=== PATIENT | male | born 1945 | race Caucasian/White ===

== ENCOUNTER 2020-10-26 14:04 | Inpatient (IN) | payer MEDICARE ==
[2020-10-26] MEDS ORDERED: SODIUM CHLORIDE 0.9% 1,000 ML IV ONE ×2 (14:28→18:53)
[2020-10-26] MEDS ORDERED: SODIUM CHLORIDE 0.9% 500 ML 500 ML IV ONE (14:28)
--- NOTE | 2020-10-26 14:33 | ED ---
General Adult HPI - General Chief complaint: Dizziness Stated complaint: A fib Time Seen by Provider: 10/26/20 14:10 Source: patient, EMS, RN notes reviewed, old records reviewed Mode of arrival: EMS Limitations: altered mental status - History of Present Illness Initial comments: This is a 74-year-old male who has a past medical history of atrial fibrillation and high blood pressure. Patient is very poor historian secondary to his current condition. Patient is brought in by EMS because of his altered mental status. A neighbor found him yesterday and the neighbor thought the patient was confused and the patient continued to be confused so EMS was called and they brought the patient to the emergency department. Patient denies any symptoms. Patient states he does understand that he was here because he is somewhat forgetful. Patient denies headache patient denies numbness weakness. Patient denies chest pain difficult breathing shortness of breath. Patient denies any recent fever chills or cough per patient denies abdominal pain patient denies nausea vomiting diarrhea. Patient denies any dysuria hematuria urinary frequency. Patient denies any recent fall or trauma. - Related Data Home Medications Medication Instructions Recorded Confirmed Diclofenac Sodium Gel [Voltaren 2 gm TOPICAL QID PRN 10/26/20 10/26/20 Gel] Furosemide [Lasix] 20 mg PO DAILY 10/26/20 10/26/20 Metoprolol Tartrate [Lopressor] 50 mg PO BID 10/26/20 10/26/20 Omeprazole 20 mg PO DAILY 10/26/20 10/26/20 Sildenafil Citrate 100 mg PO DAILY PRN 10/26/20 10/26/20 Simvastatin 80 mg PO HS 10/26/20 10/26/20 Warfarin Sodium 2 mg PO TUSA 10/26/20 10/26/20 Warfarin Sodium 4 mg PO SUMOWETHFR 10/26/20 10/26/20 lisinopriL [Zestril] 5 mg PO DAILY 10/26/20 10/26/20 Allergies Allergy/AdvReac Type Severity Reaction Status Date / Time No Known Allergies Allergy Verified 10/26/20 17:52 Review of Systems ROS Statement: Those systems with pertinent positive or pertinent negative responses have been documented in the HPI. ROS Other: All systems not noted in ROS Statement are negative. Past Medical History Past Medical History: Atrial Fibrillation, Hypertension History of Any Multi-Drug Resistant Organisms: None Reported Past Surgical History: No Surgical Hx Reported Past Psychological History: No Psychological Hx Reported Smoking Status: Never smoker Past Alcohol Use History: None Reported Past Drug Use History: None Reported General Exam - General Exam Comments Initial Comments: GENERAL: Patient is well-developed and well-nourished. Patient is nontoxic and well- hydrated and is in mild distress. ENT: Neck is soft and supple. No significant lymphadenopathy is noted. Oropharynx is clear. Moist mucous membranes. Neck has full range of motion without eliciting any pain. EYES: The sclera were anicteric and conjunctiva were pink and moist. Extraocular movements were intact and pupils were equal round and reactive to light. Eyeli ds were unremarkable. PULMONARY: Unlabored respirations. Good breath sounds bilaterally. No audible rales rhonchi or wheezing was noted. CARDIOVASCULAR: There is a regular rate and rhythm without any murmurs gallops or rubs. ABDOMEN: Soft and nontender with normal bowel sounds. No palpable organomegaly was noted. There is no palpable pulsatile mass. SKIN: Skin is clear with no lesions or rashes and otherwise unremarkable. NEUROLOGIC: Patient is alert and oriented 2. Cranial nerves II through XII are grossly intact. Motor and sensory are also intact. Normal speech, volume and content. Symmetrical smile. MUSCULOSKELETAL: Normal extremities with adequate strength and full range of motion. LYMPHATICS: No significant lymphadenopathy is noted PSYCHIATRIC: Normal psychiatric evaluation. Limitations: no limitations Course Vital Signs 10/26/20 10/26/20 14:07 15:53 Temperature 98.7 F 99.1 F Pulse Rate 99 80 Respiratory 18 18 Rate Blood Pressure 101/73 101/61 O2 Sat by Pulse 94 L 95 Oximetry Medical Decision Making - Medical Decision Making EKG shows atrial fibrillation with occasional PVC at 91 bpm QRS is 114 QT interval 380 QTC is 467. Patient's EKG shows no ST segment elevation or depression. Patient was COVID positive. Patient's chest x-ray shows pneumonia consistent with COVID pneumonia. I spoke with some physicians agreed to admit the patient and the patient wrote admitting orders. - Lab Data Result diagrams: 10/26/20 14:45 10/26/20 14:45 Lab Results 10/26/20 10/26/20 10/26/20 Range/Units 14:45 14:45 14:45 WBC 4.6 (3.8-10.6) k/uL RBC 4.76 (4.30-5.90) m/uL Hgb 15.4 (13.0-17.5) gm/dL Hct 44.1 (39.0-53.0) % MCV 92.7 (80.0-100.0) fL MCH 32.3 (25.0-35.0) pg MCHC 34.8 (31.0-37.0) g/dL RDW 12.9 (11.5-15.5) % Plt Count 385 (150-450) k/uL MPV 6.9 Neutrophils % 69 % Lymphocytes % 20 % Monocytes % 5 % Eosinophils % 2 % Basophils % 1 % Neutrophils # 3.2 (1.3-7.7) k/uL Lymphocytes # 0.9 L (1.0-4.8) k/uL Monocytes # 0.3 (0-1.0) k/uL Eosinophils # 0.1 (0-0.7) k/uL Basophils # 0.1 (0-0.2) k/uL PT >130.0 H (9.0-12.0) sec INR >10.0 H* (<1.2) APTT 46.2 H (22.0-30.0) sec Sodium 135 L (137-145) mmol/L Potassium 3.6 (3.5-5.1) mmol/L Chloride 96 L (98-107) mmol/L Carbon Dioxide 27 (22-30) mmol/L Anion Gap 12 mmol/L BUN 25 H (9-20) mg/dL Creatinine 1.03 (0.66-1.25) mg/dL Est GFR (CKD-EPI)AfAm 82 (>60 ml/min/1.73 sqM) Est GFR (CKD-EPI)NonAf 71 (>60 ml/min/1.73 sqM) Glucose 115 H (74-99) mg/dL Calcium 8.3 L (8.4-10.2) mg/dL Total Bilirubin 1.0 (0.2-1.3) mg/dL AST 68 H (17-59) U/L ALT 48 (4-49) U/L Alkaline Phosphatase 48 (38-126) U/L Troponin I (0.000-0.034) ng/mL Total Protein 6.5 (6.3-8.2) g/dL Albumin 3.2 L (3.5-5.0) g/dL Urine Color Urine Appearance (Clear) Urine pH (5.0-8.0) Ur Specific Loving (1.001-1.035) Urine Protein (Negative) Urine Glucose (UA) (Negative) Urine Ketones (Negative) Urine Blood (Negative) Urine Nitrite (Negative) Urine Bilirubin (Negative) Urine Urobilinogen (<2.0) mg/dL Ur Leukocyte Esterase (Negative) Urine Opiates Screen (NotDetected) Ur Oxycodone Screen (NotDetected) Urine Methadone Screen (NotDetected) Ur Propoxyphene Screen (NotDetected) Ur Barbiturates Screen (NotDetected) U Tricyclic Antidepress (NotDetected) Ur Phencyclidine Scrn (NotDetected) Ur Amphetamines Screen (NotDetected) U Methamphetamines Scrn (NotDetected) U Benzodiazepines Scrn (NotDetected) Urine Cocaine Screen (NotDetected) U Marijuana (THC) Screen (NotDetected) Serum Alcohol <10 mg/dL Coronavirus (PCR) (Not Detectd) 10/26/20 10/26/20 10/26/20 Range/Units 14:45 16:00 18:18 WBC (3.8-10.6) k/uL RBC (4.30-5.90) m/uL Hgb (13.0-17.5) gm/dL Hct (39.0-53.0) % MCV (80.0-100.0) fL MCH (25.0-35.0) pg MCHC (31.0-37.0) g/dL RDW (11.5-15.5) % Plt Count (150-450) k/uL MPV Neutrophils % % Lymphocytes % % Monocytes % % Eosinophils % % Basophils % % Neutrophils # (1.3-7.7) k/uL Lymphocytes # (1.0-4.8) k/uL Monocytes # (0-1.0) k/uL Eosinophils # (0-0.7) k/uL Basophils # (0-0.2) k/uL PT (9.0-12.0) sec INR (<1.2) APTT (22.0-30.0) sec Sodium (137-145) mmol/L Potassium (3.5-5.1) mmol/L Chloride (98-107) mmol/L Carbon Dioxide (22-30) mmol/L Anion Gap mmol/L BUN (9-20) mg/dL Creatinine (0.66-1.25) mg/dL Est GFR (CKD-EPI)AfAm (>60 ml/min/1.73 sqM) Est GFR (CKD-EPI)NonAf (>60 ml/min/1.73 sqM) Glucose (74-99) mg/dL Calcium (8.4-10.2) mg/dL Total Bilirubin (0.2-1.3) mg/dL AST (17-59) U/L ALT (4-49) U/L Alkaline Phosphatase (38-126) U/L Troponin I 0.014 (0.000-0.034) ng/mL Total Protein (6.3-8.2) g/dL Albumin (3.5-5.0) g/dL Urine Color Yellow Urine Appearance Clear (Clear) Urine pH 5.0 (5.0-8.0) Ur Specific Loving 1.019 (1.001-1.035) Urine Protein Trace H (Negative) Urine Glucose (UA) Negative (Negative) Urine Ketones Trace H (Negative) Urine Blood Negative (Negative) Urine Nitrite Negative (Negative) Urine Bilirubin Negative (Negative) Urine Urobilinogen <2.0 (<2.0) mg/dL Ur Leukocyte Esterase Negative (Negative) Urine Opiates Screen Not Detected (NotDetected) Ur Oxycodone Screen Not Detected (NotDetected) Urine Methadone Screen Not Detected (NotDetected) Ur Propoxyphene Screen Not Detected (NotDetected) Ur Barbiturates Screen Not Detected (NotDetected) U Tricyclic Antidepress Not Detected (NotDetected) Ur Phencyclidine Scrn Not Detected (NotDetected) Ur Amphetamines Screen Not Detected (NotDetected) U Methamphetamines Scrn Not Detected (NotDetected) U Benzodiazepines Scrn Not Detected (NotDetected) Urine Cocaine Screen Not Detected (NotDetected) U Marijuana (THC) Screen Not Detected (NotDetected) Serum Alcohol mg/dL Coronavirus (PCR) Detected A (Not Detectd) Disposition Clinical Impression: Coagulopathy, Altered mental status, Pneumonia due to COVID-19 virus Disposition: ADMITTED IP TO THIS HOSP Referrals: Nonstaff,Physician [Primary Care Provider] - 1-2 days Time of Disposition: 18:53
[2020-10-26 15:05] LABS: Basophils # (A) 0.1 k/uL (0-0.2); Basophils % (A) 1 %; Eosinophils # (A) 0.1 k/uL (0-0.7); Eosinophils % (A) 2 %; HCT 44.1 % (39.0-53.0); HGB 15.4 gm/dL (13.0-17.5); Lymphocytes # (A) 0.9 k/uL (1.0-4.8); Lymphocytes % (A) 20 %; MCH 32.3 pg (25.0-35.0); MCHC 34.8 g/dL (31.0-37.0); MCV 92.7 fL (80.0-100.0); Mean Platelet Volume 6.9; Monocytes # (A) 0.3 k/uL (0-1.0); Monocytes % (A) 5 %; Neutrophils # (A) 3.2 k/uL (1.3-7.7); Neutrophils % (A) 69 %; Platelet Count 385 k/uL (150-450); RBC 4.76 m/uL (4.30-5.90); RDW 12.9 % (11.5-15.5); WBC 4.6 k/uL (3.8-10.6)
[2020-10-26 15:19] LABS: Partial Thromboplastin Time 46.2 sec (22.0-30.0)
[2020-10-26 15:21] LABS: ALT 48 U/L (4-49); AST 68 U/L (17-59); African American GFR (CKD) 82 (>60 ml/min/1.73 sqM); Albumin 3.2 g/dL (3.5-5.0); Alcohol <10 mg/dL; Alkaline Phosphatase 48 U/L (38-126); Anion Gap 12 mmol/L; Blood Urea Nitrogen 25 mg/dL (9-20); Calcium 8.3 mg/dL (8.4-10.2); Carbon Dioxide 27 mmol/L (22-30); Chloride 96 mmol/L (98-107); Glucose 115 mg/dL (74-99); Non-African American GFR(CKD) 71 (>60 ml/min/1.73 sqM); Potassium 3.6 mmol/L (3.5-5.1); Sodium 135 mmol/L (137-145); Total Protein 6.5 g/dL (6.3-8.2)
--- NOTE | 2020-10-26 15:21 | XR ---
EXAMINATION TYPE: XR chest 2V DATE OF EXAM: 10/26/2020 COMPARISON: NONE HISTORY: Shortness of breath TECHNIQUE: Frontal and lateral views of the chest are obtained. FINDINGS: Scattered senescent parenchymal changes noted. Hyperinflation compatible with COPD. Scattered areas of patchy infiltrate are seen bilaterally. Correlate for Covid 19 pneumonia. Heart size is stable. Mediastinal structures are stable and grossly unremarkable. No evidence for hilar prominence. Degenerative changes dorsal spine. IMPRESSION: 1. Scattered areas of patchy infiltrate are seen bilaterally. Correlate for Covid 19 pneumonia.
[2020-10-26 15:44] LABS: Prothrombin Time >130.0 sec (9.0-12.0)
[2020-10-26 15:45] LABS: INR >10.0 (<1.2)
[2020-10-26 16:39] LABS: Appearance,Urine Clear (Clear); Bilirubin,Urine Negative (Negative); Blood,Urine Negative (Negative); Color,Urine Yellow; Glucose,Urine (UA) Negative (Negative); Ketones,Urine Trace (Negative); Leukocyte Esterase,Urine Negative (Negative); Nitrite,Urine Negative (Negative); Protein,Urine Trace (Negative); Specific Gravity,Urine 1.019 (1.001-1.035); Urobilinogen,Urine <2.0 mg/dL (<2.0)
--- NOTE | 2020-10-26 16:40 | CT ---
EXAM: CT brain wo con CLINICAL HISTORY: Pain. COMPARISON: None TECHNIQUE: Contiguous axial noncontrast images of the brain were obtained. Coronal and sagittal refor mats were generated and reviewed. Automated dose reduction technique was used for the study. DLP: 109 8.4 mGy.cm FINDINGS: There is no evidence for intracranial hemorrhage, mass effect, midline shift or acute large vessel te rritory infarct. There is moderate parenchymal volume loss. Otherwise white matter is grossly preserv ed. Ventricular size and configuration is within normal limits for degree of parenchymal volume. The paranasal sinuses demonstrate moderate disease. The mastoid air cells are clear. No evidence for calvarial fracture. IMPRESSION: No acute intracranial abnormality.
[2020-10-26 16:49] LABS: Amphetamine Screen,Urine Not Detected (NotDetected); Barbiturate Screen,Urine Not Detected (NotDetected); Benzodiazepines Screen,Urine Not Detected (NotDetected); Cocaine Screen,Urine Not Detected (NotDetected); Methadone Screen, Urine Not Detected (NotDetected); Opiate Screen,Urine Not Detected (NotDetected); Oxycodone Screen, Urine Not Detected (NotDetected); Phencyclidine Screen,Urine Not Detected (NotDetected); Tricyclic Antidepressant,Urine Not Detected (NotDetected); Urn Cannabinoid Scrn Not Detected (NotDetected)
[2020-10-26] MEDS ORDERED: dexAMETHasone 2 MG TAB PO STA (18:56)
[2020-10-26] MEDS ORDERED: PHYTONADIONE ORAL 5 MG/5 ML ORAL.SYRG PO STA (20:05)
[2020-10-26] MEDS: METOPROLOL TARTRATE 50 MG TAB PO SCH (21:51)
--- NOTE | 2020-10-26 23:49 | P.HPIM ---
History of Present Illness H&P Date: 10/26/20 The patient is a 74-year-old male with a PMH of A. fib on Coumadin, and hypertension who was brought into the emergency room by EMS due to altered mental status. The patient was a very poor historian and could not provide meaningful history. The patient was reportedly found confused in his house by the neighbor who subsequently contacted EMS. In noted that he does not know why he's here. Reported a chronic nonproductive cough for the past several months but denied any additional complaints. Denied chest discomfort, shortness of breath, fever, chills, nausea, vomiting, abdominal pain. Could not recall the events over the past few days. The patient lives by himself and notes that his son visits him and checks on him often. The patient could not recall his son's contact information and his number is not the chart. He underwent an extensive evaluation in the emergency room which was all reviewed with coronavirus PCR positive, chest x-ray consistent with COVID-[address] was unremarkable with EKG showing A. fib at 91 bpm. Laboratory evaluation also revealed an INR greater than 10, sodium 135, chloride 96, BUN 25, creatinine 1.03, glucose 115, calcium 8.3, AST 68, with unremarkable UA and urine toxicology. Review of Systems Pertinent positives and negatives as discussed in HPI, a complete review of systems was performed and all other systems are negative. Past Medical History Past Medical History: Atrial Fibrillation, Hypertension History of Any Multi-Drug Resistant Organisms: None Reported Past Surgical History: No Surgical Hx Reported Past Anesthesia/Blood Transfusion Reactions: Unable to Obtain Past Psychological History: No Psychological Hx Reported Smoking Status: Never smoker Past Alcohol Use History: None Reported Past Drug Use History: None Reported Medications and Allergies Home Medications Medication Instructions Recorded Confirmed Type Diclofenac Sodium Gel [Voltaren 2 gm TOPICAL QID PRN 10/26/20 10/26/20 History Gel] Furosemide [Lasix] 20 mg PO DAILY 10/26/20 10/26/20 History Metoprolol Tartrate [Lopressor] 50 mg PO BID 10/26/20 10/26/20 History Omeprazole 20 mg PO DAILY 10/26/20 10/26/20 History Sildenafil Citrate 100 mg PO DAILY PRN 10/26/20 10/26/20 History Simvastatin 80 mg PO HS 10/26/20 10/26/20 History Warfarin Sodium 2 mg PO TUSA 10/26/20 10/26/20 History Warfarin Sodium 4 mg PO SUMOWETHFR 10/26/20 10/26/20 History lisinopriL [Zestril] 5 mg PO DAILY 10/26/20 10/26/20 History Allergies Allergy/AdvReac Type Severity Reaction Status Date / Time No Known Allergies Allergy Verified 10/26/20 17:52 Physical Exam Vitals: Vital Signs Temp Pulse Pulse Resp BP BP Pulse Ox 10/26/20 23:30 86 18 121/77 91 L 10/26/20 21:10 99.1 F 89 18 114/66 92 L 10/26/20 21:06 18 10/26/20 20:55 98.8 F 101 H 18 115/69 95 10/26/20 15:53 99.1 F 80 18 101/61 95 10/26/20 14:07 98.7 F 99 18 101/73 94 L Intake and Output 10/26/20 10/26/20 10/27/20 14:59 22:59 06:59 Other: Weight 81.647 kg 81.647 kg General: non toxic, no distress, appears at stated age Derm: no unusual rashes/lesions no unusual ecchymoses, warm, dry Head: atraumatic, normocephalic, symmetric Eyes: EOMI, no lid lag, anicteric sclera, pupils equal round reactive to light ENT: Nose and ears atraumatic, no thrush, no pharyngeal erythema Neck: No thyromegaly, no cervical lymphadenopathy, trachea midline, supple Mouth: no lip lesion, mucus membranes moist Cardiovascular: S1S2 reg, no murmur, positive posterior tibial pulse bilateral, no edema, capillary refill less than 2 seconds Lungs: CTA bilateral, no rhonchi, no rales , no accessory muscle use Abdominal: soft, nontender to palpation, no guarding, no appreciable organomegaly, normal bowel sounds Ext: no gross muscle atrophy, muscle strength 5 out of 5 in all 4 extremities grossly, no contractures, Neuro: CN II-XI grossly intact, light touch intact all 4 extremities, finger to nose within normal limits, Psych: Awake, alert, oriented to person, believes he is in a medical clinic, oriented to year but not to month Results CBC & Chem 7: 10/26/20 14:45 10/26/20 14:45 Labs: Abnormal Lab Results - Last 24 Hours (Table) 10/26/20 10/26/20 10/26/20 Range/Units 14:45 14:45 14:45 Lymphocytes # 0.9 L (1.0-4.8) k/uL PT >130.0 H (9.0-12.0) sec INR >10.0 H* (<1.2) APTT 46.2 H (22.0-30.0) sec Sodium 135 L (137-145) mmol/L Chloride 96 L (98-107) mmol/L BUN 25 H (9-20) mg/dL Glucose 115 H (74-99) mg/dL Calcium 8.3 L (8.4-10.2) mg/dL AST 68 H (17-59) U/L Albumin 3.2 L (3.5-5.0) g/dL Urine Protein (Negative) Urine Ketones (Negative) Coronavirus (PCR) (Not Detectd) 10/26/20 10/26/20 Range/Units 16:00 18:18 Lymphocytes # (1.0-4.8) k/uL PT (9.0-12.0) sec INR (<1.2) APTT (22.0-30.0) sec Sodium (137-145) mmol/L Chloride (98-107) mmol/L BUN (9-20) mg/dL Glucose (74-99) mg/dL Calcium (8.4-10.2) mg/dL AST (17-59) U/L Albumin (3.5-5.0) g/dL Urine Protein Trace H (Negative) Urine Ketones Trace H (Negative) Coronavirus (PCR) Detected A (Not Detectd) Thrombosis Risk Factor Assmnt - Choose All That Apply Any of the Below Risk Factors Present?: No Other Risk Factors: Yes Each Risk Factor Represents 3 Points: Age 75 years or older Thrombosis Risk Factor Assessment Total Risk Factor Score: 3 Thrombosis Risk Factor Assessment Level: Moderate Risk Assessment and Plan Plan: COVID-19 Pneumonia -Supplemental oxygen -Dexamethasone -Monitor inflammatory markers -Pulmonary consult Altered mental status, likely acute toxic metabolic encephalopathy secondary to ongoing pneumonia -Continue with above management -CT head unremarkable -Treat underlying dehydration due to likely poor oral intake Supratherapeutic INR on Coumadin -2.5 mg of oral vitamin K ordered -Monitor INR daily -Hold Coumadin for now -Monitor for bleeding Prerenal azotemia, likely secondary to poor oral intake -Continue with IV fluids Hypertension -Hold off on antihypertensives in setting of borderline BP with active infection DVT prophylaxis -Coumadin The patient is admitted with an anticipated greater than 2 midnight stay for evaluation of COVID-19 pneumonia CODE STATUS: Full Code Discussed with: Patient Anticipated discharge date: 3-[address]: Home A total of 35 minutes was spent on the care of this complex patient more than 50% of the time was spent in counseling and care coordination.
[2020-10-27 07:29] LABS: HCT 46.3 % (39.0-53.0); HGB 15.5 gm/dL (13.0-17.5); MCH 31.9 pg (25.0-35.0); MCHC 33.5 g/dL (31.0-37.0); MCV 95.1 fL (80.0-100.0); Mean Platelet Volume 6.9; Platelet Count 357 k/uL (150-450); RBC 4.87 m/uL (4.30-5.90); WBC 4.2 k/uL (3.8-10.6)
[2020-10-27 07:32] LABS: ALT 44 U/L (4-49); AST 63 U/L (17-59); African American GFR (CKD) >90 (>60 ml/min/1.73 sqM); Alkaline Phosphatase 46 U/L (38-126); Anion Gap 8 mmol/L; Blood Urea Nitrogen 18 mg/dL (9-20); C Reactive Protein 55.1 mg/L (<10.0); Calcium 8.1 mg/dL (8.4-10.2); Carbon Dioxide 24 mmol/L (22-30); Chloride 100 mmol/L (98-107); Glucose 218 mg/dL (74-99); LDH 962 U/L (313-618); Non-African American GFR(CKD) >90 (>60 ml/min/1.73 sqM); Potassium 4.1 mmol/L (3.5-5.1); Sodium 132 mmol/L (137-145); Total Protein 6.1 g/dL (6.3-8.2)
[2020-10-27 07:44] LABS: INR 4.2 (<1.2); Prothrombin Time 40.6 sec (9.0-12.0)
[2020-10-27] MEDS ORDERED: lisinopriL 5 MG TAB PO SCH (09:00)
[2020-10-27] MEDS: FUROSEMIDE 20 MG TAB PO SCH (09:33)
[2020-10-27] MEDS: PANTOPRAZOLE 40 MG TABLET PO SCH (09:34)
[2020-10-27] MEDS: METOPROLOL TARTRATE 50 MG TAB PO SCH ×2 (09:34→19:49)
[2020-10-27] MEDS: dexAMETHasone 2 MG TAB PO SCH (09:34)
[2020-10-27 11:07] LABS: Erythrocyte Sedimentation Rate 55 mm/hr (0-15)
--- NOTE | 2020-10-27 12:29 | P.PN ---
Subjective Progress Note Date: 10/27/20 Principal diagnosis: COVID-19 Patient is doing well today. He denies any shortness of breath. He was on room air when I saw him and O2 sats was 92%. No acute events overnight reported by nursing staff. Objective - Vital Signs Vital signs: Vital Signs Temp 97.4 F L 10/27/20 08:00 Pulse 96 10/27/20 08:00 Resp 20 10/27/20 08:00 BP 108/69 10/27/20 08:00 Pulse Ox 93 L 10/27/20 08:21 Intake & Output 10/26/20 10/27/20 10/27/20 18:59 06:59 18:59 Intake Total 450 480 Output Total 300 Balance 150 480 Weight 81.647 kg 80 kg Intake: Intake, IV Titration 450 Amount Sodium Chloride 0.9% 1, 450 000 ml @ 75 mls/hr IV . [id number] Rx#:[id number] Oral 480 Output: Urine 300 Other: # Voids 1 - Exam General: The patient is awake and alert, in no distress Eye: there is normal conjunctiva bilaterally. Neck: The neck is supple, there is no JVD. Cardiovascular: Normal S1-S2, no S3-S4, no murmurs. Respiratory: Lungs clear to auscultation bilaterally Gastrointestinal: Abdomen is soft, nontender Musculoskeletal: There is no pedal edema. Neurological:. Speech is normal. Skin: Skin is warm and dry - Labs CBC & Chem 7: 10/27/20 06:41 10/27/20 06:41 Labs: Abnormal Lab Results - Last 24 Hours (Table) 10/26/20 10/26/20 10/26/20 Range/Units 14:45 14:45 14:45 Lymphocytes # 0.9 L (1.0-4.8) k/uL ESR (0-15) mm/hr PT >130.0 H (9.0-12.0) sec INR >10.0 H* (<1.2) APTT 46.2 H (22.0-30.0) sec Sodium 135 L (137-145) mmol/L Chloride 96 L (98-107) mmol/L BUN 25 H (9-20) mg/dL Glucose 115 H (74-99) mg/dL Calcium 8.3 L (8.4-10.2) mg/dL AST 68 H (17-59) U/L Lactate Dehydrogenase (313-618) U/L C-Reactive Protein (<10.0) mg/L Total Protein (6.3-8.2) g/dL Albumin 3.2 L (3.5-5.0) g/dL Urine Protein (Negative) Urine Ketones (Negative) Coronavirus (PCR) (Not Detectd) 10/26/20 10/26/20 10/27/20 Range/Units 16:00 18:18 06:41 Lymphocytes # (1.0-4.8) k/uL ESR (0-15) mm/hr PT 40.6 H (9.0-12.0) sec INR 4.2 H (<1.2) APTT (22.0-30.0) sec Sodium (137-145) mmol/L Chloride (98-107) mmol/L BUN (9-20) mg/dL Glucose (74-99) mg/dL Calcium (8.4-10.2) mg/dL AST (17-59) U/L Lactate Dehydrogenase (313-618) U/L C-Reactive Protein (<10.0) mg/L Total Protein (6.3-8.2) g/dL Albumin (3.5-5.0) g/dL Urine Protein Trace H (Negative) Urine Ketones Trace H (Negative) Coronavirus (PCR) Detected A (Not Detectd) 10/27/20 10/27/20 Range/Units 06:41 06:41 Lymphocytes # (1.0-4.8) k/uL ESR 55 H (0-15) mm/hr PT (9.0-12.0) sec INR (<1.2) APTT (22.0-30.0) sec Sodium 132 L (137-145) mmol/L Chloride (98-107) mmol/L BUN (9-20) mg/dL Glucose 218 H (74-99) mg/dL Calcium 8.1 L (8.4-10.2) mg/dL AST 63 H (17-59) U/L Lactate Dehydrogenase 962 H (313-618) U/L C-Reactive Protein 55.1 H (<10.0) mg/L Total Protein 6.1 L (6.3-8.2) g/dL Albumin 3.0 L (3.5-5.0) g/dL Urine Protein (Negative) Urine Ketones (Negative) Coronavirus (PCR) (Not Detectd) Assessment and Plan Assessment: This is a 74-year-old male with past medical history noted below who presented to the emergency room with altered mental status. Patient was evaluated in the ER and admitted to the hospital for further management of his medical problems noted below. 1. COVID-19 pneumonia, we will continue supportive care. Started on vitamin C, vitamin D, and melatonin. Pulmonology consulted for further evaluation 2. Acute toxo metabolic encephalopathy, may be attributed to underlying infec tion. Baseline cognitive function is not known to me. Computed tomography scan of the brain in the ER with no acute findings. We will continue orientation and to contact family to clarify baseline mental status. Urinalysis was clear. 3. Acute hypoxic respiratory failure on presentation, now resolved. Patient is on room air. He was started on dexamethasone 6 mg daily currently day #2 4. Coagulopathy, with INR greater than 10 on presentation. Patient was given vitamin K in the ER. We'll continue to monitor INR daily. Continue to hold Coumadin for now. 5. Chronic medical problems: Essential hypertension, paroxysmal atrial fibrillation
--- NOTE | 2020-10-27 14:08 | P.CNPUL ---
History of Present Illness Consult date: 10/27/20 Requesting physician: Elaina Maza Reason for consult: abnormal CXR/CT, other Chief complaint: Confusion, mental status changes. History of present illness: 74-year-old male, with a history of atrial fibrillation and hypertension. The patient apparently was a very poor historian in the emergency department, and still is. He was brought in by EMS, because of mental status changes. He melissa arently was found by a neighbor or a friend, and the patient was confused, so EMS was called and they brought him into the emergency department. He wasn't sure why he was here. He denies all pulmonary complaints including shortness of breath, cough, wheezing, chest tightness, phlegm production. He also denies chest pain or chest discomfort. He also denies any fever or chills. They did test him for coronavirus in the emergency room, and he did test positive. They did also notice that he had a Coumadin induced coagulopathy, which is much improved today. He denied any nausea, vomiting, diarrhea, or abdominal pain. He also denies any leg swelling, and all genitourinary complaints. He also any trauma. Currently, the patient's on room air. He is resting comfortably. He states he is not short of breath. His chest x-ray, did show some diffuse bilateral infiltrates, consistent with COVID 19. Review of Systems REVIEW OF SYSTEMS: CONSTITUTIONAL: Confusion NEUROLOGIC: Memory loss HEENT: [ Negative.] CARDIAC: [Negative.] PULMONARY: [Negative.] GI: [Negative.] : [Negative.] RHEUMATOLOGIC: [ Negative.] IMMUNOLOGIC: [ Negative.] ENDOCRINE: [Negative. ] DERMATOLOGIC: [Negative.] Past Medical History Past Medical History: Atrial Fibrillation, Hypertension History of Any Multi-Drug Resistant Organisms: None Reported Past Surgical History: No Surgical Hx Reported Past Anesthesia/Blood Transfusion Reactions: Unable to Obtain Past Psychological History: No Psychological Hx Reported Smoking Status: Never smoker Past Alcohol Use History: None Reported Past Drug Use History: None Reported Medications and Allergies Home Medications Medication Instructions Recorded Confirmed Type Diclofenac Sodium Gel [Voltaren 2 gm TOPICAL QID PRN 10/26/20 10/26/20 History Gel] Furosemide [Lasix] 20 mg PO DAILY 10/26/20 10/26/20 History Metoprolol Tartrate [Lopressor] 50 mg PO BID 10/26/20 10/26/20 History Omeprazole 20 mg PO DAILY 10/26/20 10/26/20 History Sildenafil Citrate 100 mg PO DAILY PRN 10/26/20 10/26/20 History Simvastatin 80 mg PO HS 10/26/20 10/26/20 History Warfarin Sodium 2 mg PO TUSA 10/26/20 10/26/20 History Warfarin Sodium 4 mg PO SUMOWETHFR 10/26/20 10/26/20 History lisinopriL [Zestril] 5 mg PO DAILY 10/26/20 10/26/20 History Allergies Allergy/AdvReac Type Severity Reaction Status Date / Time No Known Allergies Allergy Verified 10/26/20 17:52 Physical Exam Osteopathic Statement: *. No significant issues noted on an osteopathic structural exam other than those noted in the History and Physical/Consult. Vitals: Vital Signs Temp Pulse Pulse Resp BP BP Pulse Ox 10/27/20 08:21 93 L 10/27/20 08:00 97.4 F L 96 20 108/69 95 10/27/20 04:00 97.7 F 94 18 136/82 93 L 10/27/20 02:00 86 18 10/26/20 23:30 86 18 121/77 91 L 10/26/20 21:10 99.1 F 89 18 114/66 92 L 10/26/20 21:06 18 10/26/20 20:55 98.8 F 101 H 18 115/69 95 10/26/20 15:53 99.1 F 80 18 101/61 95 10/26/20 14:07 98.7 F 99 18 101/73 94 L Intake and Output 10/26/20 10/27/20 10/27/20 22:59 06:59 14:59 Intake Total 450 600 Output Total 300 600 Balance 150 0 Intake: Intake, IV Titration 450 Amount Sodium Chloride 0.9% 1, 450 000 ml @ 75 mls/hr IV . [id number] ONE Rx#:[id number] Oral 600 Output: Urine 300 600 Other: # Voids 1 Weight 81.647 kg 80 kg No acute distress, oriented 3. No respiratory distress, audible wheezing, or use of accessory muscles. HEENT examination is grossly unremarkable. Mucous membranes are moist. No oral lesions. Neck supple. Full range of motion. No adenopathy thyromegaly or neck vein distention. Cardiovascular examination reveals regular rhythm rate. S1-S2 normal. No S3 or S4. No discernible murmur noted. Heart rate is 96 bpm. Lungs reveal clear breath sounds. Her sounds are equal bilaterally. No adventitious lung sounds including wheezes rhonchi or crackles. Room air saturation is 95%. Abdomen soft bowel sounds are heard. No masses or tenderness. Extremities are intact. No cyanosis clubbing or edema. Skin is without rash or lesion. Neurologic examination reveals a gentleman who moves all 4 extremities, but is confused as to why he is here in the hospital. Results - Laboratory Findings CBC and BMP: 10/27/20 06:41 10/27/20 06:41 PT/INR, D-dimer PT 40.6 sec (9.0-12.0) H 10/27/20 06:41 INR 4.2 (<1.2) H 10/27/20 06:41 Abnormal lab findings: Abnormal Labs 10/26/20 10/26/20 10/26/20 14:45 14:45 14:45 Lymphocytes # 0.9 L ESR PT >130.0 H INR >10.0 H* APTT 46.2 H Sodium 135 L Chloride 96 L BUN 25 H Glucose 115 H Calcium 8.3 L AST 68 H Lactate Dehydrogenase C-Reactive Protein Total Protein Albumin 3.2 L Urine Protein Urine Ketones Coronavirus (PCR) 10/26/20 10/26/20 10/27/20 16:00 18:18 06:41 Lymphocytes # ESR PT 40.6 H INR 4.2 H APTT Sodium Chloride BUN Glucose Calcium AST Lactate Dehydrogenase C-Reactive Protein Total Protein Albumin Urine Protein Trace H Urine Ketones Trace H Coronavirus (PCR) Detected A 10/27/20 10/27/20 06:41 06:41 Lymphocytes # ESR 55 H PT INR APTT Sodium 132 L Chloride BUN Glucose 218 H Calcium 8.1 L AST 63 H Lactate Dehydrogenase 962 H C-Reactive Protein 55.1 H Total Protein 6.1 L Albumin 3.0 L Urine Protein Urine Ketones Coronavirus (PCR) - Diagnostic Findings Chest x-ray: image reviewed Assessment and Plan Assessment: Coronavirus infection, and evidence of possible mild COVID 19 pneumonia, in a pa tient without pulmonary complaints. Mental status changes, and confusion, which may be either acute or chronic. History of atrial fibrillation. History of essential hypertension. Lifelong nontobacco user. Coumadin induced coagulopathy. Hyperlipidemia. Gastroesophageal reflux disease. Plan: Plan dated 10/27/2020. The patient tested positive for coronavirus, but does not appear to have any significant pulmonary complaints. He denies any shortness breath, cough, wheezing, or phlegm production. His chest x-ray does show some minimal bilateral patchy infiltrates. The patient is a lifelong nonsmoker. He has no known history of any chronic lung disease. He does have a history of atrial fibrillation, hypertension, hyperlipidemia, and gastroesophageal reflux disease. His mental status changes, may relate to coronavirus, or underlying dementia. From the pulmonary standpoint, not much to do. I would offer the patient vitamin C, vitamin D3, and zinc. The patient in my opinion does not require Decadron. I would not recommend it. His Coumadin induced coagulopathy is much improved. We'll see the patient as needed. Should his respiratory status declined, please feel free to call us back. Time with Patient: Greater than 30
[2020-10-27 15:21] LABS: Ferritin 1277.5 ng/mL (22.0-322.0)
[2020-10-27] MEDS: ASCORBIC ACID 500 MG TAB PO SCH (16:04)
[2020-10-27] MEDS: CHOLECALCIFEROL 25 MCG (1000 IU) TABLET PO SCH (16:04)
[2020-10-27] MEDS: MELATONIN 5 MG TABLET PO SCH (19:49)
[2020-10-28 07:49] LABS: INR 2.2 (<1.2); Prothrombin Time 21.5 sec (9.0-12.0)
[2020-10-28 08:21] LABS: African American GFR (CKD) >90 (>60 ml/min/1.73 sqM); Anion Gap 6 mmol/L; Blood Urea Nitrogen 21 mg/dL (9-20); Calcium 8.2 mg/dL (8.4-10.2); Carbon Dioxide 26 mmol/L (22-30); Chloride 106 mmol/L (98-107); Glucose 115 mg/dL (74-99); Magnesium 2.1 mg/dL (1.6-2.3); Non-African American GFR(CKD) >90 (>60 ml/min/1.73 sqM); Potassium 3.9 mmol/L (3.5-5.1); Sodium 138 mmol/L (137-145)
[2020-10-28] MEDS: METOPROLOL TARTRATE 50 MG TAB PO SCH ×2 (08:54→20:29)
[2020-10-28] MEDS: dexAMETHasone 2 MG TAB PO SCH (08:54)
[2020-10-28] MEDS: ASCORBIC ACID 500 MG TAB PO SCH (08:54)
[2020-10-28] MEDS: PANTOPRAZOLE 40 MG TABLET PO SCH (08:54)
[2020-10-28] MEDS: CHOLECALCIFEROL 25 MCG (1000 IU) TABLET PO SCH (08:54)
[2020-10-28] MEDS: FUROSEMIDE 20 MG TAB PO SCH (08:54)
--- NOTE | 2020-10-28 11:16 | P.PN ---
Subjective Progress Note Date: 10/28/20 Principal diagnosis: COVID-19 Patient is doing well today. He is currently on room air. He denies any shortness of breath. No acute events overnight reported by nursing staff. Patient appears very confused. He is only oriented to himself. He has no insight of his medical problems and is not sure about how he takes his Coumadin at home. He lives alone. Objective - Vital Signs Vital signs: Vital Signs Temp 98.2 F 10/28/20 08:51 Pulse 105 H 10/28/20 08:51 Resp 18 10/28/20 08:51 BP 128/70 10/28/20 08:51 Pulse Ox 91 L 10/28/20 08:51 Intake & Output 10/27/20 10/28/20 10/28/20 18:59 06:59 18:59 Intake Total 1380 510 Output Total 600 550 Balance 780 -550 510 Weight 82 kg Intake: IV 10 Invasive Line 3 10 Intake, IV Titration 200 Amount Sodium Chloride 0.9% 1, 200 000 ml @ 75 mls/hr IV . [id number] ONE Rx#:[id number] Oral 1380 300 Output: Urine 600 550 Other: Voiding Method Urinal # Voids 1 1 - Exam General: The patient is awake and alert, in no distress Eye: there is normal conjunctiva bilaterally. Neck: The neck is supple, there is no JVD. Cardiovascular: Normal S1-S2, no S3-S4, no murmurs. Respiratory: Lungs clear to auscultation bilaterally Gastrointestinal: Abdomen is soft, nontender Musculoskeletal: There is no pedal edema. Neurological:. Speech is normal. Skin: Skin is warm and dry - Labs CBC & Chem 7: 10/27/20 06:41 10/28/20 06:42 Labs: Abnormal Lab Results - Last 24 Hours (Table) 10/27/20 10/28/20 10/28/20 Range/Units 06:41 06:42 06:42 PT 21.5 H (9.0-12.0) sec INR 2.2 H (<1.2) BUN 21 H (9-20) mg/dL Glucose 115 H (74-99) mg/dL Calcium 8.2 L (8.4-10.2) mg/dL Ferritin 1277.5 H (22.0-322.0) ng/mL Assessment and Plan Assessment: This is a 74-year-old male with past medical history noted below who presented to the emergency room with altered mental status. Patient was evaluated in the ER and admitted to the hospital for further management of his medical problems noted below. 1. COVID-19 pneumonia, we will continue supportive care. Started on vitamin C, vitamin D, and melatonin. Pulmonology consulted for further evaluation. Recommended to discontinue Decadron. No evidence of hypoxia. 2. Acute toxo metabolic encephalopathy, with suspected underlying dementia. Worsening confusion may be attributed to underlying infection. Baseline cognitive function is not known to me. Computed tomography scan of the brain in the ER with no acute findings. 3. Acute hypoxic respiratory failure on presentation, now resolved. Patient is on room air. 4. Coagulopathy, with INR greater than 10 on presentation. Patient was given vitamin K in the ER. We'll continue to monitor INR daily. Resume Coumadin 2 mg daily 5. Chronic medical problems: Essential hypertension, paroxysmal atrial fibrillation Today, I spoke to his son Saleem over the phone. He informed me that he is not involved in his father's care. He also told me that they don't even speak. Patient does not have any family otherwise. He is not safe to be discharged home given underlying cognitive impairment and dementia. I would get social work involved. May benefit from going to residential facility. We will need a legal guardian as well.
--- NOTE | 2020-10-28 12:25 | P.PN ---
Subjective Progress Note Date: 10/28/20 Principal diagnosis: Altered mental status, CoVID 19 infection 74-year-old male, with a history of atrial fibrillation and hypertension. The patient apparently was a very poor historian in the emergency department, and still is. He was brought in by EMS, because of mental status changes. He apparently was found by a neighbor or a friend, and the patient was confused, so EMS was called and they brought him into the emergency department. He wasn't sure why he was here. He denies all pulmonary complaints including shortness of breath, cough, wheezing, chest tightness, phlegm production. He also denies chest pain or chest discomfort. He also denies any fever or chills. They did test him for coronavirus in the emergency room, and he did test positive. They did also notice that he had a Coumadin induced coagulopathy, which is much improved today. He denied any nausea, vomiting, diarrhea, or abdominal pain. He also denies any leg swelling, and all genitourinary complaints. He also any trauma. Currently, the patient's on room air. He is resting comfortably. He states he is not short of breath. His chest x-ray, did show some diffuse bilateral infiltrates, consistent with COVID 19. The patient is seen today 10/28/2020 in follow-up on the selective care unit. He is currently sitting up at the bedside. Awake and alert in no acute distress. He is a bit more alert and oriented. Knowing that he is in [place], knowing the year. He is maintaining O2 saturations in the 90s on room air. He's afebrile. Hemodynamically stable. INR 2.2. Sodium 138. Potassium 3.9. Creatinine 0.74. Remains on vitamin supplements. Oral diuretics. Warfarin resumed. Objective - Vital Signs Vital signs: Vital Signs Temp 98.2 F 10/28/20 08:51 Pulse 70 10/28/20 12:00 Resp 16 10/28/20 12:00 BP 104/56 10/28/20 12:00 Pulse Ox 94 L 10/28/20 12:00 Intake & Output 10/27/20 10/28/20 10/28/20 18:59 06:59 18:59 Intake Total 1380 510 Output Total 600 550 Balance 780 -550 510 Weight 82 kg Intake: IV 10 Invasive Line 3 10 Intake, IV Titration 200 Amount Sodium Chloride 0.9% 1, 200 000 ml @ 75 mls/hr IV . [id number] ONE Rx#:[id number] Oral 1380 300 Output: Urine 600 550 Other: Voiding Method Urinal # Voids 1 1 - Exam GENERAL EXAM: Alert, 74-year-old gentleman, on room air, comfortable in no apparent distress. HEAD: Normocephalic. EYES: Normal reaction of pupils, equal size. NOSE: Clear with pink turbinates. THROAT: No erythema or exudates. NECK: No masses, no JVD. CHEST: No chest wall deformity. LUNGS: Equal air entry with no crackles, wheeze, rhonchi or dullness. CVS: S1 and S2 normal with no audible murmur, regular rhythm. ABDOMEN: No hepatosplenomegaly, normal bowel sounds, no guarding or rigidity. SPINE: No scoliosis or deformity SKIN: No rashes CENTRAL NERVOUS SYSTEM: No focal deficits, tone is normal in all 4 extremities. EXTREMITIES: There is no peripheral edema. No clubbing, no cyanosis. Peripheral pulses are intact. - Labs CBC & Chem 7: 10/27/20 06:41 10/28/20 06:42 Labs: Abnormal Lab Results - Last 24 Hours (Table) 10/27/20 10/28/20 10/28/20 Range/Units 06:41 06:42 06:42 PT 21.5 H (9.0-12.0) sec INR 2.2 H (<1.2) BUN 21 H (9-20) mg/dL Glucose 115 H (74-99) mg/dL Calcium 8.2 L (8.4-10.2) mg/dL Ferritin 1277.5 H (22.0-322.0) ng/mL Assessment and Plan Assessment: 1 Coronavirus infection, and evidence of possible mild COVID 19 pneumonia, in a patient without pulmonary complaints. 2 Mental status changes, and confusion, which may be either acute or chronic. 3 History of atrial fibrillation. 4 History of essential hypertension. 5 Lifelong nontobacco user. 6 Coumadin induced coagulopathy, improved currently 2.2. 7 Hyperlipidemia. 8 Gastroesophageal reflux disease. Plan: The patient was seen and evaluated by Dr. Love Currently stable from the pulmonary standpoint Remains on room air Home once cleared medically We will see as needed I, the cosigning physician, performed a history & physical examination of the patient. Lungs sounds are clear. Maintaining good O2 saturations in the 90s on room air. I discussed the assessment and plan of care with my nurse practitioner, Lorene Franks. I attest to the above note as dictated by her.
[2020-10-28] MEDS: WARFARIN 2 MG TAB PO SCH (17:16)
[2020-10-28] MEDS: MELATONIN 5 MG TABLET PO SCH (20:29)
[2020-10-29 07:31] LABS: INR 2.5 (<1.2); Prothrombin Time 24.4 sec (9.0-12.0)
[2020-10-29] MEDS: METOPROLOL TARTRATE 50 MG TAB PO SCH ×2 (08:32→19:49)
[2020-10-29] MEDS: ASCORBIC ACID 500 MG TAB PO SCH (08:32)
[2020-10-29] MEDS: FUROSEMIDE 20 MG TAB PO SCH (08:32)
[2020-10-29] MEDS: CHOLECALCIFEROL 25 MCG (1000 IU) TABLET PO SCH (08:32)
[2020-10-29] MEDS: PANTOPRAZOLE 40 MG TABLET PO SCH (08:32)
--- NOTE | 2020-10-29 11:01 | P.PN ---
Subjective Progress Note Date: 10/29/20 Principal diagnosis: COVID-19 Patient is awake and alert. He is oriented to himself and sometimes to the place. His mentation is waxing and waning. He is pleasantly confused. He definitely does not have any insight of his medical problems or his medications. No acute events overnight reported by nursing staff. Objective - Vital Signs Vital signs: Vital Signs Temp 98.3 F 10/29/20 10:00 Pulse 52 L 10/29/20 10:00 Resp 18 10/29/20 10:00 BP 109/73 10/29/20 10:00 Pulse Ox 93 L 10/29/20 10:00 Intake & Output 10/28/20 10/29/20 10/29/20 18:59 06:59 18:59 Intake Total 1270 120 Balance 1270 120 Weight 80.5 kg Intake: IV 30 20 Invasive Line 3 30 20 Intake, IV Titration 200 Amount Sodium Chloride 0.9% 1, 200 000 ml @ 75 mls/hr IV . [id number] ONE Rx#:[id number] Oral 1040 100 Other: Voiding Method Urinal Urinal # Voids 1 1 1 - Exam General: The patient is awake and alert, in no distress Eye: there is normal conjunctiva bilaterally. Neck: The neck is supple, there is no JVD. Cardiovascular: Normal S1-S2, no S3-S4, no murmurs. Respiratory: Lungs clear to auscultation bilaterally Gastrointestinal: Abdomen is soft, nontender Musculoskeletal: There is no pedal edema. Neurological:. Speech is normal. Skin: Skin is warm and dry - Labs CBC & Chem 7: 10/27/20 06:41 10/28/20 06:42 Labs: Abnormal Lab Results - Last 24 Hours (Table) 10/29/20 Range/Units 07:04 PT 24.4 H (9.0-12.0) sec INR 2.5 H (<1.2) Assessment and Plan Assessment: This is a 74-year-old male with past medical history noted below who presented to the emergency room with altered mental status. Patient was evaluated in the ER and admitted to the hospital for further management of his medical problems noted below. 1. COVID-19 pneumonia, we will continue supportive care. Started on vitamin C, vitamin D, and melatonin. Pulmonology consulted for further evaluation. Recommended to discontinue Decadron. No evidence of hypoxia. 2. Acute toxo metabolic encephalopathy, with suspected underlying dementia. Worsening confusion may be attributed to underlying infection. Baseline cognitive function is not known to me. Computed tomography scan of the brain in the ER with no acute findings. I would order folate level, vitamin B12, and TSH 3. Acute hypoxic respiratory failure on presentation, now resolved. Patient is on room air. 4. Coagulopathy, with INR greater than 10 on presentation. Patient was given vitamin K in the ER. We'll continue to monitor INR daily. Resume Coumadin 2 mg daily managed by pharmacy 5. Chronic medical problems: Essential hypertension, paroxysmal atrial fibrillation I spoke to his son Saleem over the phone. He informed me that he is not involved in his father's care. He also told me that they don't even speak. Patient does not have any family otherwise. His father and sisters both with Alzheimer's dementia. He is not safe to be discharged home given underlying cognitive impairment and dementia. I would get social work involved. May benefit from going to [facility] facility. May need a legal guardian as well.
[2020-10-29 16:38] LABS: Folate, Serum 4.4 ng/mL
[2020-10-29] MEDS: WARFARIN 2 MG TAB PO SCH (18:01)
[2020-10-29] MEDS: MELATONIN 5 MG TABLET PO SCH (19:49)
[2020-10-30] MEDS: FOLIC ACID 1 MG TAB PO SCH (08:27)
[2020-10-30] MEDS: CHOLECALCIFEROL 25 MCG (1000 IU) TABLET PO SCH (08:27)
[2020-10-30] MEDS: PANTOPRAZOLE 40 MG TABLET PO SCH (08:27)
[2020-10-30] MEDS: CYANOCOBALAMIN 500 MCG TAB PO SCH (08:27)
[2020-10-30] MEDS: ASCORBIC ACID 500 MG TAB PO SCH (08:27)
[2020-10-30] MEDS: FUROSEMIDE 20 MG TAB PO SCH (08:27)
[2020-10-30] MEDS: METOPROLOL TARTRATE 50 MG TAB PO SCH ×2 (08:27→20:55)
[2020-10-30 11:52] LABS: INR 2.38 (0.90-1.11); Prothrombin Time 24.5 sec (9.9-11.9)
--- NOTE | 2020-10-30 12:08 | P.DS ---
Providers Date of admission: 10/26/20 18:55 Expected date of discharge: 10/30/20 Attending physician: Elaina Maza DO Consults: 10/26/20 18:53 Consult Physician Urgent Consulting Provider: Asaf Love Reason/Comments: COVID pneumonia Do you want consulting provider notified?: Yes Primary care physician: Magali Ayon [facility] Course: This is a 74-year-old male with past medical history noted below who presented to the emergency room with altered mental status. Patient was evaluated in the ER and admitted to the hospital for further management of his medical problems noted below. 1. COVID-19 pneumonia, asymptomatic. Started on vitamin C, vitamin D, and melatonin. Pulmonology consulted for further evaluation. Recommended to discontinue Decadron. No evidence of hypoxia. 2. Acute toxo metabolic encephalopathy, with suspected underlying dementia. Worsening confusion may be attributed to underlying infection. Baseline cognitive function is not known to me. Computed tomography scan of the brain in the ER with no acute findings. Started vitamin B12 and folic acid replacement. Thyroid function tests within acceptable range. 3. Acute hypoxic respiratory failure on presentation, now resolved. Patient is on room air. 4. Coagulopathy, with INR greater than 10 on presentation. Patient was given vitamin K in the ER. Resume Coumadin 2 mg daily 5. Chronic medical problems: Essential hypertension, paroxysmal atrial fibrillation I spoke to his son Saleem over the phone. He informed me that he is not involved in his father's care. He also told me that they don't even speak. Patient does not have any family otherwise. His father and sisters both with Alzheimer's dementia. I had a prolonged discussion with social problems specialist about patient's safety being discharged home. APS contacted and case was not open. We did set up home care for patient. Visiting nurse to check INR. Follow-up with the [facility] in to 3 days Patient Condition at Discharge: Fair Plan - Discharge Summary Discharge Rx Participant: No New Discharge Prescriptions: New Warfarin [Coumadin] 2 mg PO DAILY #60 tablet Melatonin 5 mg PO HS #14 tablet Ascorbic Acid [Vitamin C] 1,000 mg PO DAILY #28 tab Ergocalciferol (Vitamin D2) [Vitamin D2 (2000 Iu)] 50 mcg PO DAILY #14 tab Folic Acid 1 mg PO DAILY #30 tab Cyanocobalamin [Vitamin B-12] 500 mcg PO DAILY #30 tab Continue Sildenafil Citrate 100 mg PO DAILY PRN PRN Reason: E.D. lisinopriL [Zestril] 5 mg PO DAILY Omeprazole 20 mg PO DAILY Metoprolol Tartrate [Lopressor] 50 mg PO BID Furosemide [Lasix] 20 mg PO DAILY Diclofenac Sodium Gel [Voltaren Gel] 2 gm TOPICAL QID PRN PRN Reason: RIGHT MEDIAL FOOT Discontinued Simvastatin 80 mg PO HS Warfarin Sodium 4 mg PO SUMOWETHFR Warfarin Sodium 2 mg PO TUSA Discharge Medication List Diclofenac Sodium Gel [Voltaren Gel] 2 gm TOPICAL QID PRN 10/26/20 [History] Furosemide [Lasix] 20 mg PO DAILY 10/26/20 [History] Metoprolol Tartrate [Lopressor] 50 mg PO BID 10/26/20 [History] Omeprazole 20 mg PO DAILY 10/26/20 [History] Sildenafil Citrate 100 mg PO DAILY PRN 10/26/20 [History] lisinopriL [Zestril] 5 mg PO DAILY 10/26/20 [History] Ascorbic Acid [Vitamin C] 1,000 mg PO DAILY #28 tab 10/28/20 [Rx] Ergocalciferol (Vitamin D2) [Vitamin D2 (2000 Iu)] 50 mcg PO DAILY #14 tab 10/28/20 [Rx] Melatonin 5 mg PO HS #14 tablet 10/28/20 [Rx] Warfarin [Coumadin] 2 mg PO DAILY #60 tablet 10/28/20 [Rx] Cyanocobalamin [Vitamin B-12] 500 mcg PO DAILY #30 tab 10/30/20 [Rx] Folic Acid 1 mg PO DAILY #30 tab 10/30/20 [Rx] Follow up Appointment(s)/Referral(s): Magali Mascorro PAC [Primary Care Provider] - 1-2 Days Discharge Disposition: HOME WITH HOME HEALTH SERVICES
[2020-10-30] MEDS: WARFARIN 2 MG TAB PO SCH (17:29)
[2020-10-30] MEDS: MELATONIN 5 MG TABLET PO SCH (20:55)
[2020-10-31 07:44] VITALS: RESP 18
[2020-10-31] MEDS: ASCORBIC ACID 500 MG TAB PO SCH (07:50)
[2020-10-31] MEDS: CHOLECALCIFEROL 25 MCG (1000 IU) TABLET PO SCH (07:52)
[2020-10-31] MEDS: FUROSEMIDE 20 MG TAB PO SCH (07:52)
[2020-10-31] MEDS: CYANOCOBALAMIN 500 MCG TAB PO SCH (07:52)
[2020-10-31] MEDS: PANTOPRAZOLE 40 MG TABLET PO SCH (07:52)
[2020-10-31] MEDS: METOPROLOL TARTRATE 50 MG TAB PO SCH (07:52)
[2020-10-31] MEDS: FOLIC ACID 1 MG TAB PO SCH (07:52)
[2020-10-31 09:57] LABS: INR 2.19 (0.90-1.11); Prothrombin Time 22.7 sec (9.9-11.9)
[2020-10-31 10:13] VITALS: PULSE 65
--- NOTE | 2020-10-31 10:17 | P.PN ---
Progress Note - Text Progress Note Date: 10/31/20 Patient discharge was delayed until today to ensure safe discharge. Social work was able to contact his son who is in a pickup the patient today. APS also notified. He will be discharged home in a stable condition. No acute events overnight. For further details about this hospitalization please refer to my discharge summary dated 10/30/2020 Patient is awake and alert today. No complaints this morning. Physical exam: General: The patient is awake and alert, in no distress Eye: there is normal conjunctiva bilaterally. Neck: The neck is supple, there is no JVD. Cardiovascular: Normal S1-S2, no S3-S4, no murmurs. Respiratory: Lungs clear to auscultation bilaterally Gastrointestinal: Abdomen is soft, nontender Musculoskeletal: There is no pedal edema. Neurological:. Speech is normal. Skin: Skin is warm and dry
[2020-10-31 13:47] VITALS: BP 104/66; TEMP 98.2
== END 2020-10-31 14:14 | disposition home health service (06) | DRG 177 ==
LOC: EC 14:04 → 3SCARD 18:55 → 4SSUR 10-29 07:30
PROVIDERS: ADMIT Internal Medicine; ATTEND Internal Medicine
DX: U07.1 COVID-19 (principal); J12.82 Pneumonia due to coronavirus disease 2019; J96.01 Acute respiratory failure with hypoxia; G92 Toxic encephalopathy; D68.9 Coagulation defect, unspecified; I48.0 Paroxysmal atrial fibrillation; F03.90 Unspecified dementia, unspecified severity, without behavioral disturbance, psychotic disturbance, mood disturbance, and anxiety; E86.0 Dehydration; I10 Essential (primary) hypertension; R79.89 Other specified abnormal findings of blood chemistry; I49.3 Ventricular premature depolarization; E78.5 Hyperlipidemia, unspecified; K21.9 Gastro-esophageal reflux disease without esophagitis; R41.89 Other symptoms and signs involving cognitive functions and awareness; T45.515A Adverse effect of anticoagulants, initial encounter; Z79.899 Other long term (current) drug therapy; Z79.01 Long term (current) use of anticoagulants; Z82.0 Family history of epilepsy and other diseases of the nervous system
CPT/HCPCS: 36415; 70450; 71046; 80048; 80053; 80306; 80320; 81003; 82607; 82728; 82746; 83615; 83735; 84443; 84484; 85025; 85027; 85610; 85652; 85730; 86140; 87635; 93005; 94760; 96360; 96361; 99285

== ENCOUNTER 2021-02-06 13:36 | Emergency (ER) | payer MEDICARE ==
[2021-02-06 13:44] VITALS: BP 161/81; PULSE 74; RESP 16; TEMP 98
[2021-02-06] MEDS ORDERED: LIDOCAINE 1% INJ 10MG/ML (20 ML MDV) SQ ONE (13:59)
--- NOTE | 2021-02-06 14:44 | ED ---
Skin/Abscess/FB HPI - General Chief complaint: Skin/Abscess/Foreign Body Stated complaint: Low back pain,Dr sent Time Seen by Provider: 02/06/21 13:44 Source: patient, RN notes reviewed Mode of arrival: ambulatory Limitations: no limitations - History of Present Illness Initial comments: Patient is a 75 she'll male presents immersed from a complaining of a abscess to his right butt cheek. He notes it started off as a small pimple which she picked at causing the wrist. 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 He denied any pain or tenderness. He was in no apparent distress or pain. He noted that he did not want stay in the hospital just one abscess drained antibiotics to go home. He denied any fever fatigue chills headache chest pendulous breath nausea vomiting diarrhea constipation - Related Data Home Medications Medication Instructions Recorded Confirmed Diclofenac Sodium Gel [Voltaren 2 gm TOPICAL QID PRN 10/26/20 10/26/20 Gel] Furosemide [Lasix] 20 mg PO DAILY 10/26/20 10/26/20 Metoprolol Tartrate [Lopressor] 50 mg PO BID 10/26/20 10/26/20 Omeprazole 20 mg PO DAILY 10/26/20 10/26/20 Sildenafil Citrate 100 mg PO DAILY PRN 10/26/20 10/26/20 lisinopriL [Zestril] 5 mg PO DAILY 10/26/20 10/26/20 Previous Rx's Medication Instructions Recorded Ascorbic Acid [Vitamin C] 1,000 mg PO DAILY #28 tab 10/28/20 Ergocalciferol (Vitamin D2) 50 mcg PO DAILY #14 tab 10/28/20 [Vitamin D2 (2000 Iu)] Melatonin 5 mg PO HS #14 tablet 10/28/20 Warfarin [Coumadin] 2 mg PO DAILY #60 tablet 10/28/20 Cyanocobalamin [Vitamin B-12] 500 mcg PO DAILY #30 tab 10/30/20 Folic Acid 1 mg PO DAILY #30 tab 10/30/20 Sulfamethox-Tmp 800-160Mg [Bactrim 1 each PO Q12HR #20 tab 02/06/21 Ds] Allergies Allergy/AdvReac Type Severity Reaction Status Date / Time No Known Allergies Allergy Verified 02/06/21 13:44 Review of Systems ROS Statement: Those systems with pertinent positive or pertinent negative responses have been documented in the HPI. ROS Other: All systems not noted in ROS Statement are negative. Past Medical History Past Medical History: Atrial Fibrillation, Hypertension History of Any Multi-Drug Resistant Organisms: None Reported Past Surgical History: No Surgical Hx Reported Past Anesthesia/Blood Transfusion Reactions: Unable to Obtain Past Psychological History: No Psychological Hx Reported Smoking Status: Never smoker Past Alcohol Use History: None Reported Past Drug Use History: None Reported General Exam Limitations: no limitations General appearance: alert, in no apparent distress Head exam: Present: atraumatic, normocephalic, normal inspection Eye exam: Present: normal appearance, PERRL, EOMI. Absent: scleral icterus, conjunctival injection, periorbital swelling Respiratory exam: Present: normal lung sounds bilaterally. Absent: respiratory distress, wheezes, rales, rhonchi, stridor Cardiovascular Exam: Present: regular rate, normal rhythm, normal heart sounds. Absent: systolic murmur, diastolic murmur, rubs, gallop, clicks GI/Abdominal exam: Present: soft, normal bowel sounds. Absent: distended, tenderness, guarding, rebound, rigid Extremities exam: Present: normal inspection, full ROM, normal capillary refill. Absent: tenderness, pedal edema, joint swelling, calf tenderness Neurological exam: Present: alert, oriented X3, CN II-XII intact Psychiatric exam: Present: normal affect, normal mood Expanded Type of lesion: Present: abscess (To the right buttock, measuring approximately 5 cm x 3 cm with erythema surrounding it.) Course Vital Signs 02/06/21 13:38 Temperature 98 F Pulse Rate 74 Respiratory 16 Rate Blood Pressure 161/81 O2 Sat by Pulse 97 Oximetry Procedures - Incision & Drainage Consent Obtained: verbal consent Site: buttock (Right buttock) Size (cm): 5 Anesthetic Used: lidocaine 1% Amount (mLs): 12 I&D Cleaning Method: Betadine Sterile Field Used?: Yes Scalpel Used: #11 Needle Aspiration Performed?: No I&D Drainage Obtained: Pus, Blood Packing: Iodoform Culture Obtained?: Yes Patient Tolerated Procedure: well, no complications Medical Decision Making - Medical Decision Making 75-year-old male complaining of right buttock abscess that started off as a pimple that he picked at. 1% lidocaine ordered for incision and drainage. Aerobic and anaerobic swabs ordered. Patient tolerated incision and drainage well. Wound was packed with iodoform packing and covered with clean gauze. Patient had any ALLERGIES to any antibiotics. Case discussed with Dr. Jackson him a patient discharge home with follow-up to primary care. Disposition Clinical Impression: Abscess of buttock, right, Cellulitis Disposition: HOME SELF-CARE Condition: Stable Instructions (If sedation given, give patient instructions): Abscess Incision and Drainage (ED), Abscess (ED) Additional Instructions: Please return to the Emergency Department if symptoms worsen or any other concerns. Follow-up with primary care in the next several days to check wound. Take antibiotics as prescribed until complete. Can clean area with warm water gentle soap. Repack every 24 hours as needed. Continue take at home medications as prescribed. Can take Tylenol Motrin as needed for pain control. Is patient prescribed a controlled substance at d/c from ED?: No Referrals: None,Stated [Primary Care Provider] - 1-2 days Time of Disposition: 14:44
== END 2021-02-06 14:20 | disposition home or self-care (01) ==
LOC: EC 13:36
DX: L03.317 Cellulitis of buttock (principal); M54.5 Low back pain; I10 Essential (primary) hypertension; I48.91 Unspecified atrial fibrillation; Z79.01 Long term (current) use of anticoagulants
CPT/HCPCS: 10060; 87070; 87075; 87077; 87186; 87205; 99283

== ENCOUNTER → 2024-05-05 | Outpatient (CLI) | payer MEDICARE ==
--- NOTE | 2024-05-05 19:14 | MR ---
EXAMINATION TYPE: MR brain wo con DATE OF EXAM: 05/05/2024 COMPARISON: CT brain 10/26/2020 HISTORY: amnesia. CONTRAST: None TECHNIQUE: Multiplanar, multiecho imaging on a 3.0 Caitie magnet is performed through the brain. Stud y is performed within 24 hours of arrival to the hospital. The craniovertebral junction is normal. The pituitary is normal. Diffusion-weighted imaging is performed. No abnormal hyperintensity is present to suggest an acute i ntracranial infarct or acute ischemic change. There are multiple scattered punctate areas of hyperintensity on T2 and Inversion Recovery weighted s equences which are non-specific but can be related to microvascular ischemic changes. Ventricles and sulci are prominent for the patient age. IMPRESSION: 1. Atrophy with chronic appearing periventricular white matter ischemic-type changes.
== END | disposition home or self-care (01) ==
LOC: RADMRIMAIN 15:33
PROVIDERS: ATTEND Psychiatry & Neurology Neurology
DX: R41.3 Other amnesia
CPT/HCPCS: 70551